=== PATIENT | male | born 1970 | race Asian ===

== ENCOUNTER 2020-10-22 12:46 | Emergency (ER) | payer MEDICAID ==
[~2020-10-22] VITALS: Ht 170.2 cm; Wt 67.1 kg
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
[2020-10-22] MEDS ORDERED: SILVER SULFADIA50 GM TP (13:43)
[2020-10-22] MEDS ORDERED: Bacitracin Oint 15gm Tube TOPIC SCH (13:45)
[2020-10-22 13:47] VITALS: BP 112/77
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
--- NOTE | 2020-10-22 13:59 | NUR ---
ED Nurse Note: Pt cleared by health care Provider for discharge. DC instructions/prescription was given and explained to pt and verbalized understanding of teachings. All medical deviecs such as ID band removed. Pt is AAO x4, ambulatory and left with all personal belongings.
== END 2020-10-22 14:06 | disposition home or self-care (01) ==
LOC: EMR 13:45
DX: T25.222A Burn of second degree of left foot, initial encounter (principal); T31.0 Burns involving less than 10% of body surface; X11.8XXA Contact with other hot tap-water, initial encounter; Y92.9 Unspecified place or not applicable
CPT/HCPCS: 99282